=== PATIENT | female | born 1980 | race Caucasian/White ===

== ENCOUNTER 2017-08-28 16:05 | Observation (INO) ==
[2017-08-28 16:30] LABS: Basophils % 0.1 %; Eosinophils % 0.3 %; Hematocrit 35.2 % (35.3-44.9); Hemoglobin 11.8 g/dL (11.5-15.4); Immature Granulocytes % 0.4 % (0-4); Lymphocytes # 2.5 K/mcL (0.6-4.6); Lymphocytes % 20.1 %; Mean Corpuscular HGB Conc 33.5 g/dL (31.6-35.5); Mean Corpuscular Hemoglobin 29.7 pg (28.0-33.3); Mean Corpuscular Volume 88.7 fL (83.0-100.0); Mean Platelet Volume 11.2 fL (9.4-12.4); Monocytes # 0.6 K/mcL (0.0-1.3); Monocytes % 5.3 %; Platelet Count 133 K/mcL (140-400); Red Blood Count 3.97 M/mcL (3.82-4.97); Red Cell Distribution Width 13.2 % (11.5-14.5); Segmented Neutrophils % 73.8 %
[2017-08-28 16:34] LABS: Bilirubin,Urine Negative (Negative); Blood,Urine Moderate (Negative); Clarity,Urine Cloudy (Clear); Color,Urine Yellow (Yellow); Glucose,Urine (UA) Normal (Normal); Ketones,Urine Negative (Negative); Leukocyte Esterase,Urine Large (Negative); Nitrite,Urine Negative (Negative); Protein,Urine Negative (Neg-Trace); Specific Gravity,Urine 1.015 (1.010-1.025); Urobilinogen,Urine Normal (Normal)
[2017-08-28 16:35] LABS: Bacteria,Urine Few per hpf (None-Few); Hyaline Casts,Urine None Seen per lpf (None-Few); RBC,Urine 0-3 per hpf (0-3); Squamous Epithelial Cell,Urine Many per lpf (None-Few); WBC,Urine 30-50 per hpf (0-3)
[2017-08-28 16:46] LABS: Amphetamine Screen,Urine Negative ng/mL (Cutoff=1000); Barbiturate Screen,Urine Negative ng/mL (Cutoff=200); Benzodiazepines Screen,Urine Negative ng/mL (Cutoff=200); Cannabinoid Screen,Urine Negative ng/mL (Cutoff = 50); Cocaine Screen,Urine Negative ng/mL (Cutoff= 300); Opiate Screen,Urine Negative ng/mL (Cutoff=300); Phencyclidine Screen,Urine Negative ng/mL (Cutoff=25)
[2017-08-28 17:09] LABS: Alanine Aminotransferase 12 Units/L (7-52); Aspartate Amino Transferase 15 Units/L (13-39); BUN/Creatinine Ratio 13 (6-26); Blood Urea Nitrogen 11 mg/dL (6-20); Lactate Dehydrogenase 114 Units/L (140-271); Protein/Creatinine Ratio,Urine 0.16 mg/mg (0.00-0.20); Uric Acid 4.7 mg/dL (2.3-7.6); eGFR For African Americans > 60 (> 60); eGFR For Non-African Americans > 60 (> 60)
--- NOTE | 2017-08-28 17:36 | OB/GYN Progress Note ---
Date of Encounter: 08/28/17 Time of Encounter: 17:47 - Assessment and Plan (1) Decreased movement Current Visit: Yes Status: Acute Plan: - NST reactive, category 1 - [place] irregular contractions - PIH labs drawn and negative, blood pressure returned to wnl - Patient safe to discharge home with instructions to return if concerns for decrease kick count Qualifiers: Fetus number: single or unspecified fetus Trimester: third trimester Qualified Code(s): O36.8130 - Decreased movements, third trimester, not applicable or unspecified (2) 36 weeks gestation of Current Visit: Yes Status: Acute (3) NST (non-stress test) reactive Current Visit: Yes Status: Acute (4) Elevated blood pressure affecting in third trimester, antepartum Current Visit: Yes Status: Acute PIH labs drawn and negative for pre-eclampsia, no s/sx (5) Uterine contractions Current Visit: Yes Status: Acute Pt reporting increasing contractions. Plan to repeat SVE and will discharge if no change. Subjective - Subjective Principal diagnosis: decrease movement Interval history: Patient is a at 36+4 week that presented to L&D with decrease movement. Patient states that the last time she felt baby move was today as she was in in the L&D room. Patient has been able to feel baby move but activities that she does that normally makes baby more active has not since yesterday. Patient does have a hx of having to be induced for oligohydramnios at 36 weeks. Patient denies fevers, chills, N/V, MCINTYRE, changes in vision, leakage of fluid, vaginal bleeding. She does report contractions are becoming more frequent and stronger. She also reports pelvic pressure. Total pregnancies 3. Total living children 2. # 1: 5[birth year]23[birth year] induced at 36weeks for oligohydramnios normal spontaneous vaginal delivery (),female 5lbs 3oz "Babs" born at [facility].. # 2: 08/29/15, FEMALE, 6#, FULL TERM, VAGINAL, "NEO". Antepartum ROS: no loss of fluid, no vaginal bleeding, no movement normal , no contractions Objective - Vital Signs Vital Signs: BP: 161/90, 140/78, 136/76, 122/71 Intake and Output 08/28/17 08/28/17 08/28/17 07:59 15:59 23:59 Other: Weight 74.7 kg Patient Weight 08/28/17 23:59 Weight 74.7 kg - Exam FHR: category 1 Auscultation: bilateral: normal Abdomen: Present: soft Uterus: Present: normal - Labs Labs: Abnormal lab results WBC 12.2 K/mcL (4.3-11.1) H 08/28/17 16:16 Hct 35.2 % (35.3-44.9) L 08/28/17 16:16 Plt Count 133 K/mcL (140-400) L 08/28/17 16:16 Neutrophils # 9.0 K/mcL (1.6-8.9) H 08/28/17 16:16 Lactate Dehydrogenase 114 Units/L (140-271) L 08/28/17 16:16 Urine Clarity Cloudy (Clear) A 08/28/17 16:16 Urine Blood Moderate (Negative) H 08/28/17 16:16 Ur Leukocyte Esterase Large (Negative) H 08/28/17 16:16 Urine Microscopic WBC 30-50 per hpf (0-3) H 08/28/17 16:16 Ur Squamous Epith Cells Many per lpf (None-Few) H 08/28/17 16:16
== END 2017-08-28 18:52 | disposition home or self-care (01) ==
LOC: 1NENULAB
PROVIDERS: ADMIT Obstetrics & Gynecology; ATTEND Obstetrics & Gynecology

== ENCOUNTER 2017-09-04 11:58 | Inpatient (IN) ==
[2017-09-04] MEDS ORDERED: Famotidine 20 MG/2 ML VIAL IVP PRN (12:35)
[2017-09-04] MEDS ORDERED: Naloxone 0.4 MG/ML INJ IVP PRN (12:35)
[2017-09-04] MEDS ORDERED: Metoclopramide 10 MG/2 ML VIAL IVP PRN (12:35)
[2017-09-04] MEDS ORDERED: miSOPROStol 25 MCG TABLET VG PRN (13:30)
[2017-09-04 13:33] LABS: Basophils % 0.1 %; Eosinophils % 0.4 %; Hematocrit 35.2 % (35.3-44.9); Hemoglobin 11.7 g/dL (11.5-15.4); Immature Granulocytes % 0.4 % (0-4); Lymphocytes # 2.2 K/mcL (0.6-4.6); Lymphocytes % 20.2 %; Mean Corpuscular HGB Conc 33.2 g/dL (31.6-35.5); Mean Corpuscular Hemoglobin 29.5 pg (28.0-33.3); Mean Corpuscular Volume 88.7 fL (83.0-100.0); Mean Platelet Volume 11.4 fL (9.4-12.4); Monocytes # 0.6 K/mcL (0.0-1.3); Neutrophils # 7.8 K/mcL (1.6-8.9); Platelet Count 124 K/mcL (140-400); Red Blood Count 3.97 M/mcL (3.82-4.97); Red Cell Distribution Width 13.1 % (11.5-14.5); Segmented Neutrophils % 72.9 %
--- NOTE | 2017-09-04 13:33 | OB/GYN History & Physical ---
Date of Encounter: 09/04/17 Time of Encounter: 13:30 Assessment and Plan (1) and not yet delivered in third trimester Current visit: Yes Status: Acute (2) 37 weeks gestation of Current visit: Yes Status: Acute (3) Advanced maternal age during in third trimester Current visit: Yes Status: Acute (4) Gestational hypertension Current visit: Yes Status: Acute Patient will be induced with a Wong catheter and Cytotec PIH labs have been ordered plan is to anticipate vaginal delivery Qualifiers: Trimester: third trimester Qualified Code(s): O13.3 - Gestational [ -induced] hypertension without significant proteinuria, third trimester History of Present Illness HPI: Ms. Baum is a 37 year old female 3 para 1011 at 37-4/7 weeks by last menstrual period equal to 9-1/7 week ultrasound who was sent in from the office for induction of labor secondary to gestational hypertension. Patient's blood pressure has been elevated over the last few visits that yesterday she called stating she was beginning of headaches and blood pressures are running consistently high at home and at work and she works as a nurse. The patient come to the office this morning blood pressure was 160/109. She states she has been having some headaches and blurred vision. Patient has had PIH labs which have been normal. Because she is over 37 weeks advanced maternal age and her blood pressures are consistently elevated this to set this time go ahead and send her to labor and delivery for an induction. Patient states she is feeling the baby move but is been decreased recently no leaking of fluid contractions. She is Rh+ rubella positive and GBS negative. Past Med Surg Social Fam HX - Past Medical History Source: patient, old records reviewed Medical history: hypertension, kidney stones Psychiatric history: no psych history - Past Surgical History Surgical History: appendectomy, orthopedic, other, other (Kidney stone removal, tonsillectomy) - Social History Smoking Status: Never smoker Smokeless Tobacco Status: No Alcohol use: none Drug use: none Occupational status: employed Current living situation: Home - Independent Activity Level: Independent ambulation Recent Out of Country Travel Within the Last 8 Weeks: No Exposure or Possible Exposure to Illness During Travel: No - Family History Father Adopted: No Living Status: Still Living Hx Family Cardiac Disorders: Yes (htn) Hx Family Respiratory Disorders: No Hx Family Cancer: No Hx Family GI Disorders: No Hx Family Genitourinary Disorders: No Hx Family Endocrine Disorder: No Hx Family Musculoskeletal Disorders: No Hx Family Neuromuscular Disorders: No Hx Family Neurologic Disorders: No Hx Family HEENT Disorders: No Hx Family Autoimmune Disorders: No Hx Family Reproductive Disorders: No Hx Family Psychosocial Disorders: No Hx Family Medical Disorders: No Obstetrical History - Pregnancies : 3 Para: 1 Term: 1 : 0 Ab's: 1 Medications and Allergies Vit/FA 1 tab PO DAILY 05/25/15 [History] Aspirin [Lo-Dose Aspirin EC] 81 mg pe PO DAILY 08/28/17 [History] 3 Allergy/AdvReac Type Severity Reaction Status Date / Time No Known Allergies Allergy Verified 09/04/17 12:55 Review of System OB All systems PM: reviewed and no additional remarkable complaints except as stated Exam - Constitutional Constitutional: well developed, well nourished, no acute distress, average body habitus, obese - HEENT HEENT: PERRL - Neck Neck exam: full ROM - Lungs Respiratory exam: CTAB - Cardiovascular Cardiovascular exam: RRR - Abdomen Abdomen: Present: gravid - Extremities Extremities exam: pedal edema Deep Tendon Reflex Grade: 2+ Normal - Cervix Dilation: 1 Effacement: 80 Station: -2 - Uterus Uterus exam: Present: enlarged - Comments Comments: heart tones 140s reactive no contraction seen Results All other labs normal. - VTE Reasons for not Prescribing Prophylaxis: Treatment not Indicated - Low risk for VTE
[2017-09-04 13:43] LABS: Protein/Creatinine Ratio,Urine 0.12 mg/mg (0.00-0.20)
[2017-09-04] MEDS: Ringers Solution, Lactated 1,000 ML IVC SCH ×2 (13:50→17:48)
[2017-09-04 13:52] LABS: Alanine Aminotransferase 14 Units/L (7-52); Aspartate Amino Transferase 18 Units/L (13-39); BUN/Creatinine Ratio 13 (6-26); Blood Urea Nitrogen 11 mg/dL (6-20); Lactate Dehydrogenase 123 Units/L (140-271); eGFR For African Americans > 60 (> 60); eGFR For Non-African Americans > 60 (> 60)
[2017-09-04 13:55] LABS: Amphetamine Screen,Urine Negative ng/mL (Cutoff=1000); Barbiturate Screen,Urine Negative ng/mL (Cutoff=200); Benzodiazepines Screen,Urine Negative ng/mL (Cutoff=200); Cannabinoid Screen,Urine Negative ng/mL (Cutoff = 50); Cocaine Screen,Urine Negative ng/mL (Cutoff= 300); Opiate Screen,Urine Negative ng/mL (Cutoff=300); Phencyclidine Screen,Urine Negative ng/mL (Cutoff=25)
[2017-09-04] MEDS ORDERED: *HR* Nalbuphine 20 MG/ML AMPUL IVP PRN (17:30)
--- NOTE | 2017-09-04 18:00 | Anesthesia Evaluation PreOp ---
Date of Encounter: 09/04/17 Time of Encounter: 17:58 - Past History Planned Operation: za Cardiac History: HTN (PIH) Pulmonary History: Denies Any Significant HX WELLNESS ASSISTANT History: Denies Any Significant HX Other Medical History: GERD Anesthesia History: No Prior Anesthetic Complications, Past Anesthesia (za x 2 , tonsil) : Yes Test: Negative Alcohol Use: none Drug use: none Medications and Allergies Vit/FA 1 tab PO DAILY 05/25/15 [History] Aspirin [Lo-Dose Aspirin EC] 81 mg pe PO DAILY 08/28/17 [History] 3 Allergy/AdvReac Type Severity Reaction Status Date / Time No Known Allergies Allergy Verified 09/04/17 12:55 - Meds/Allergy Pre-op Review Medications Reviewed: Yes Allergies Reviewed: Yes Beta Blockers on Current Med List: No Anesthesia Results - Labs 09/04/17 13:20 09/04/17 13:20 Anesthesia Exam 136/86 76 16 fht 133 Height: 5'6" Weight: 74 NPO (# of Hours): 5 Pain Scale: 5 Pain Scale Used: Numeric (1 - 10) - HEENT Pupil (Motor): Pupils equal Mallampati: II Teeth: Normal Oral Opening: Greater than 3 - WELLNESS ASSISTANT LOC: Oriented WELLNESS ASSISTANT Motor: Normal RUE, Normal LUE, Normal RLE, Normal LLE, Normal Face WELLNESS ASSISTANT Sensory: Normal: RUE, LUE, RLE, LLE, Face - Cardiac Rhythm: Regular Murmur: None - Pulmonary Breath Sounds: bilateral Clear Respiratory Effort: Symmetrical Anesthesia Assess/Plan ASA Score: 2 Modified Tatianna Scale for Level of Consciousness: Cooperative, oriented, and tranquil Anesthetic Plan: Regional (risks discussed, questions answered, conseented) Autologous Blood: No Monitoring Plan: Standard Monitors Recovery Plan: Other
[2017-09-04] MEDS ORDERED: *HR* FentaNYL (PF) 100 MCG/2 ML VIAL EP ONE (18:01)
[2017-09-04] MEDS ORDERED: *HR* FentaNYL (PF) 100 MCG/2 ML VIAL ONE (18:03)
[2017-09-04] MEDS ORDERED: Epidural Premix (fent/bupiv) 110 ML EP ONE (18:04)
[2017-09-04] MEDS ORDERED: Epidural Premix (fent/bupiv) 110 ML EP SCH (18:15)
--- NOTE | 2017-09-04 18:29 | Anesthesia Procedures ---
Date of Encounter: 09/04/17 Time of Encounter: 18:26 Procedures: Anesthesia - Epidural/Spinal Patient ID/Chart reviewed: Yes Patient examined: Yes OB Eval: Gestational age: 37.4 OB Eval: : 3 OB Eval: Hx Para: 2 OB Eval: Dilated at (cm): 5 OB Eval: Contractions: Non-stressed pattern Consent Obtained: Yes Supplemental Oxygen: None/Room Air Site Prep: Aseptic Technique, Sterile prep and drape, 0.5% Chlorhexidine/Alcohol Patient position: upright Local Anesthetic: Lidocaine 1% Amount of Local Anesthetic used: 3 Touhy Needle Gauge: 18 Touhy Needle Depth (cm): 5 Catheter Depth at Skin (cm): 15 Test Dose (1.5% Lido + Epi): Volume given (mls): 3 Test Dose Result: Negative Loading Dose: Fentanyl (mcg): 100 Loading Dose Administered: Thru Touhy Needle Infusion Med: 0.125% Bupivacaine w/ 2 mcg/ml Fentanyl Infusion Rate (mls/hr): [address]: Tegaderm Interspace Used: L2-L3 Loss of Resistance (KUSHAL): Yes Blood: No CSF: No Paresthesia: No Procedure: aseptic, tolerated well, VSS, effective Vitals + FHT's: 130/80 84 fht 144
--- NOTE | 2017-09-04 18:47 | OB Labor Progress Note ---
Date of Encounter: 09/04/17 Time of Encounter: 18:50 Labor Progress Note - Vital Signs Vital Signs: Patient is more comfortable now she has an epidural not feeling any of the contractions. - Cervix Cervix: 5/80/0 AROM clear fluid - Heart Tones Heart Tones: heart tones 140s reactive - Farber Farber: Contractions every 2 minutes - Plan Plan: Continue current care and anticipate vaginal delivery
[2017-09-04] MEDS ORDERED: Oxytocin 20 units/ LR 1000 mL 20 UNIT/1,000 ML BAG IVC SCH (20:45)
--- NOTE | 2017-09-04 23:58 | OB/GYN Procedure Note ---
Delivery - Delivery Date: 09/04/17 Provider: Mainor Kimbrough Intrapartum events: none Delivery induction: brady, misoprostol Delivery augmentation: rupture of membranes, pitocin Delivery monitor: external FHT, external uterine Anesthesia: epidural Estimated Blood Loss: 100 - (s) A Infant Delivery Date: 09/04/17 Infant Delivery Time: 23:17 Presentation: vertex Position: ELE Route of delivery: Gender: Female Viability: Viable Pounds: 6 Ounces: 3 Weight Gram: 2.8 kg at 1 minute: 9 at 5 mins: 9 Shoulder Dystocia: not encountered Specimens collected: cord blood Placenta: spontaneous Cord: 3 umbilical vessels - Repair Episiotomy: none Laceration Description: Perineal - 1st Degree - Complications Delivery complications: none Delivery comments: Vision is a 37-year-old 3 para 1102 at 37-4/7 weeks she had presented from the office for induction of labor secondary to gestational hypertension. Patient's blood pressures have started to elevate approximately 4 weeks ago and was throwing a week it was moderately elevated done pH labs on the patient which have been normal patient was doing her blood pressures at home and at work and they had remained elevated we had to come to the office today the blood pressures 160/109 she was not feeling well was having some headaches and little bit of blurred vision and it was recommended go ahead and get her delivered due to the hypertension. She was brought to labor and delivery where Brady catheter and Cytotec was placed catheter fell out approximately 2-3 hours later and patient was 4-5 cm. She received an epidural she was artificially ruptured with clear fluid. Patient did require a little bit of augmentation with Pitocin and became complete and pushing couple times delivering a viable female in right occiput anterior presentation at 2317. There was no nuchal cord, no meconium, the infant was bulb suctioned on the abdomen. Apgars were 9 at 1 minute, 9 at 5 minutes, weight was 6 lbs. 3 oz. Placenta was then delivered spontaneously with three-vessel cord, scale agent at [place] , anesthesia epidural, estimated blood loss 100 mL. Patient had a small superficial perineal laceration was repaired with 4-0 Vicryl in usual fashion. Cervix and vagina was visualized intact. Patient tolerated the delivery well she will be observed 2 hours before being take to the floor. Patient is wanting a tubal ligation she will be made nothing by mouth after midnight tomorrow night for tubal ligation the next morning. - Disposition Mom disposition: stable in LDR disposition: stable in LDR
[2017-09-05] MEDS ORDERED: Lanolin 28 GM TUBE TP PRN (01:18)
[2017-09-05] MEDS ORDERED: Oxytocin 20 units/ LR 1000 mL 20 UNIT/1,000 ML BAG IVC SCH (01:18)
[2017-09-05] MEDS ORDERED: Benzocaine/Menthol 56 GM AEROSOL SPRAY TP PRN (01:18)
[2017-09-05] MEDS ORDERED: Acetaminophen 325 MG TABLET PO PRN (01:18)
[2017-09-05 07:24] LABS: Basophils % 0.1 %; Eosinophils # 0.1 K/mcL (0.0-0.6); Eosinophils % 0.7 %; Hematocrit 35.1 % (35.3-44.9); Hemoglobin 11.6 g/dL (11.5-15.4); Immature Granulocytes % 0.4 % (0-4); Lymphocytes # 2.1 K/mcL (0.6-4.6); Lymphocytes % 15.7 %; Mean Corpuscular Hemoglobin 29.4 pg (28.0-33.3); Mean Corpuscular Volume 88.9 fL (83.0-100.0); Mean Platelet Volume 11.1 fL (9.4-12.4); Monocytes # 0.8 K/mcL (0.0-1.3); Monocytes % 6.1 %; Neutrophils # 10.4 K/mcL (1.6-8.9); Platelet Count 116 K/mcL (140-400); Red Blood Count 3.95 M/mcL (3.82-4.97); Red Cell Distribution Width 13.1 % (11.5-14.5)
[2017-09-05] MEDS ORDERED: Prenatal Vit/FA 1 EACH TABLET PO SCH ×2 (09:00)
[2017-09-05] MEDS: Ibuprofen 600 MG TABLET PO PRN ×2 (09:43→20:25)
--- NOTE | 2017-09-05 10:11 | OB/GYN Progress Note ---
Date of Encounter: 09/05/17 Time of Encounter: 10:09 - Assessment and Plan (1) Normal spontaneous vaginal delivery Current Visit: Yes Status: Acute Plan: - blood pressures within normal limits, continue to monitor vitals - Pain is well controlled - NPO at midnight, BPS planned for tomorrow - continue to encourage breast feeding - anticipate discharge tomorrow (2) 37 weeks gestation of Current Visit: Yes Status: Acute (3) Advanced maternal age during in third trimester Current Visit: Yes Status: Acute (4) Gestational hypertension Current Visit: Yes Status: Acute Qualifiers: Trimester: third trimester Qualified Code(s): O13.3 - Gestational [ -induced] hypertension without significant proteinuria, third trimester Subjective - Subjective Principal diagnosis: induction of labor Interval history: Patient is doing well without pain. Patient has not taken any medication for pain today. Lochia is wnl. + voiding. Patient's blood pressures have been wnl. Patient reports: appetite normal, voiding normally, pain well controlled, ambulating normally : doing well Objective - Latest Vital Signs Latest vital signs: Vital Signs Temp Pulse Resp BP Pulse Ox 09/05/17 08:25 98.5 F 76 20 117/78 97 09/05/17 04:15 98.3 F 80 16 115/72 96 09/05/17 03:08 98.5 F 86 16 123/83 97 09/05/17 02:00 98.4 F 82 16 147/82 98 Intake and Output 09/04/17 09/05/17 09/05/17 23:59 07:59 15:59 Intake Total 1000 / 1000 360 / 360 Output Total 500 / 500 550 / 550 Balance 1000 / 1000 -500 / -500 -190 / -190 Intake: IV Fluids 1000 / 1000 Lactated Ringers 1,000 ML @ 125 1000 / 1000 mls/hr IVC .Q8H [facility] Rx#: [id number] Oral 360 / 360 Output: Urine 500 / 500 550 / 550 Other: Meal Breakfast Percent of Meal Consumed 100% Weight 73 kg Patient Weight 09/05/17 23:59 Weight 73 kg - Exam Lungs: bilateral: normal Chest: Normal S1, Normal S2 Extremities: Present: normal Abdomen: Present: normal appearance, soft Uterus: Present: firm Uterus Position: 2 Fingers Below Umbilicus - Labs Labs: Laboratory Results - last 24 hr 01/09/04/17 09/04/17 13:20 13:20 13:20 WBC 10.6 RBC 3.97 Hgb 11.7 Hct 35.2 L MCV 88.7 MCH 29.5 MCHC 33.2 RDW 13.1 Plt Count 124 L MPV 11.4 Immature Gran % 0.4 Seg Neutrophils % 72.9 Lymphocytes % 20.2 Monocytes % 6.0 Eosinophils % 0.4 Basophils % 0.1 Neutrophils # 7.8 Lymphocytes # 2.2 Monocytes # 0.6 Eosinophils # 0.0 Basophils # 0.0 BUN 11 Creatinine 0.82 Est GFR ( Amer) > 60 Est GFR (Non-Af Amer) > 60 BUN/Creatinine Ratio 13 Uric Acid 5.0 AST 18 ALT 14 Lactate Dehydrogenase 123 L Urine Creatinine Protein/Creatinin Ratio Urine Total Protein Urine Opiates Screen Negative Ur Barbiturates Screen Negative Ur Phencyclidine Scrn Negative Ur Amphetamines Screen Negative U Benzodiazepines Scrn Negative Urine Cocaine Screen Negative U Marijuana (THC) Screen Negative 09/04/17 09/05/17 13:20 07:07 WBC 13.5 H RBC 3.95 Hgb 11.6 Hct 35.1 L MCV 88.9 MCH 29.4 MCHC 33.0 RDW 13.1 Plt Count 116 L MPV 11.1 Immature Gran % 0.4 Seg Neutrophils % 77.0 Lymphocytes % 15.7 Monocytes % 6.1 Eosinophils % 0.7 Basophils % 0.1 Neutrophils # 10.4 H Lymphocytes # 2.1 Monocytes # 0.8 Eosinophils # 0.1 Basophils # 0.0 BUN Creatinine Est GFR ( Amer) Est GFR (Non-Af Amer) BUN/Creatinine Ratio Uric Acid AST ALT Lactate Dehydrogenase Urine Creatinine 92 Protein/Creatinin Ratio 0.12 Urine Total Protein 11 Urine Opiates Screen Ur Barbiturates Screen Ur Phencyclidine Scrn Ur Amphetamines Screen U Benzodiazepines Scrn Urine Cocaine Screen U Marijuana (THC) Screen
--- NOTE | 2017-09-06 07:27 | OB/GYN Progress Note ---
Date of Encounter: 09/06/17 Time of Encounter: 07:35 - Assessment and Plan (1) and not yet delivered in third trimester Current Visit: Yes Status: Acute (2) 37 weeks gestation of Current Visit: Yes Status: Acute (3) Advanced maternal age during in third trimester Current Visit: Yes Status: Acute (4) Gestational hypertension Current Visit: Yes Status: Acute Patient will be induced with a Wong catheter and Cytotec PIH labs have been ordered plan is to anticipate vaginal delivery Qualifiers: Trimester: third trimester Qualified Code(s): O13.3 - Gestational [ -induced] hypertension without significant proteinuria, third trimester (5) Family planning Current Visit: Yes Status: Acute patient will be scheduled for BPS this am Subjective - Subjective Interval history: patient doing well still wanting tubal a tubal ligation Patient reports: pain well controlled : doing well Objective - Latest Vital Signs Latest vital signs: Vital Signs Temp Pulse Resp BP Pulse Ox 09/06/17 06:12 97.7 F 59 16 138/85 98 09/06/17 00:45 125/76 09/05/17 20:02 98.1 F 84 16 136/87 97 09/05/17 16:20 16 09/05/17 15:56 97.9 F 87 20 141/83 97 09/05/17 10:00 16 09/05/17 08:25 98.5 F 76 20 117/78 97 Intake and Output 09/05/17 09/05/17 09/06/17 15:59 23:59 07:59 Intake Total 1100 / 1100 640 / 640 Output Total 1450 / 1450 1350 / 1350 400 / 400 Balance -350 / -350 -710 / -710 -400 / -400 Intake: Oral 600 / 600 640 / 640 Free Water 500 / 500 Output: Urine 1450 / 1450 1350 / 1350 400 / 400 Other: Meal Lunch Dinner Percent of Meal Consumed 100% 100% Weight 71.804 kg Patient Weight 09/06/17 23:59 Weight 71.804 kg - Exam Lungs: bilateral: normal Chest: Normal S1, Normal S2 Extremities: Present: normal Abdomen: Present: normal appearance Uterus: Present: firm Uterus Position: 1 Finger Below Umbilicus - Labs Labs: Laboratory Results - last 24 hr 09/05/17 07:07 WBC 13.5 H RBC 3.95 Hgb 11.6 Hct 35.1 L MCV 88.9 MCH 29.4 MCHC 33.0 RDW 13.1 Plt Count 116 L MPV 11.1 Immature Gran % 0.4 Seg Neutrophils % 77.0 Lymphocytes % 15.7 Monocytes % 6.1 Eosinophils % 0.7 Basophils % 0.1 Neutrophils # 10.4 H Lymphocytes # 2.1 Monocytes # 0.8 Eosinophils # 0.1 Basophils # 0.0
--- NOTE | 2017-09-06 07:40 | Anesthesia Evaluation PreOp ---
Date of Encounter: 09/06/17 Time of Encounter: 07:38 - Past History Planned Operation: BPS Cardiac History: HTN (PIH) Pulmonary History: Denies Any Significant HX PROPOSAL ENGINEER History: Denies Any Significant HX Other Medical History: Renal (kidney stones) Anesthesia History: No Prior Anesthetic Complications, Past Anesthesia Alcohol Use: none Drug use: none Medications and Allergies Vit/FA 1 tab PO DAILY 05/25/15 [History] Aspirin [Lo-Dose Aspirin EC] 81 mg pe PO DAILY 08/28/17 [History] 3 Allergy/AdvReac Type Severity Reaction Status Date / Time No Known Allergies Allergy Verified 09/04/17 12:55 - Meds/Allergy Pre-op Review Medications Reviewed: Yes Allergies Reviewed: Yes Beta Blockers on Current Med List: No Anesthesia Results - Labs 09/05/17 07:07 09/04/17 13:20 Anesthesia Exam Vital Signs/O2 Sat, Most Current Temp Pulse Resp BP Pulse Ox 97.7 F 59 16 138/85 98 09/06/17 06:12 09/06/17 06:12 09/06/17 06:12 09/06/17 06:12 09/06/17 06:12 Height: 5'6''/1.68 m Weight: 158 lbs/71.8 kg NPO (# of Hours): 8 Pain Scale: 0 Pain Scale Used: Numeric (1 - 10) - HEENT Pupil (Motor): EOMI Mallampati: II Teeth: Normal Oral Opening: Greater than 3 - PROPOSAL ENGINEER LOC: Oriented PROPOSAL ENGINEER Motor: Normal RUE, Normal LUE, Normal RLE, Normal LLE, Normal Face PROPOSAL ENGINEER Sensory: Normal: RUE, LUE, RLE, LLE, Face - Cardiac Rhythm: Regular Murmur: None - Pulmonary Breath Sounds: bilateral Clear Respiratory Effort: Symmetrical Anesthesia Assess/Plan ASA Score: 2 Modified Tatianna Scale for Level of Consciousness: Cooperative, oriented, and tranquil Anesthetic Plan: General Monitoring Plan: Standard Monitors Recovery Plan: PACU
[2017-09-06] MEDS ORDERED: *HR* FentaNYL (PF) 100 MCG/2 ML VIAL ONE (07:47)
[2017-09-06] MEDS ORDERED: *HR* Succinylcholine 200 MG/10 ML VIAL IVP ONE (07:48)
[2017-09-06] MEDS ORDERED: *HR* Propofol 200 MG/20 ML VIAL IVP ONE (07:48)
[2017-09-06] MEDS ORDERED: Ondansetron 4 MG/2 ML VIAL ONE (07:48)
[2017-09-06] MEDS ORDERED: Lidocaine -MPF 2% 2 ML VIAL ONE (07:48)
[2017-09-06] MEDS ORDERED: Dexamethasone 4 MG/ML VIAL ONE (07:48)
[2017-09-06] MEDS ORDERED: *HR* Midazolam HCl 2 MG/2 ML VIAL ONE (07:48)
[2017-09-06] MEDS ORDERED: *HR* Rocuronium Bromide 50 MG/5 ML VIAL ONE (07:48)
[2017-09-06] MEDS ORDERED: Bupivacaine-MPF 0.25% 10 ML VIAL ONE (08:10)
--- NOTE | 2017-09-06 08:55 | Operative Note ---
Date of procedure: 09/06/17 Pre-op diagnosis: Status post vaginal delivery, desires sterilization Post-op diagnosis: same Procedure: Bilateral partial salpingectomy Complications: none Surgeon: Mainor Kimbrough Was there an financial legal assistant present: No Estimated blood loss (cc): 20 Specimen: Portion of the right and left fallopian tube Condition: stable Disposition: PACU Procedure in Detail: Patient is a 37-year-old 3 para 1102 status post vaginal delivery who desired bilateral partial salpingectomy. Patient states has 3 children and desires no more the risks and benefits of the tubal was extended to patient with a failure rate of 3-5 per thousand with increased risk of ectopic if was to occur. Procedure: Patient was taken Removing the general anesthesia was found be adequate. She was placed in the dorsal supine position prepped and draped in usual fashion. Timeout was then obtained. A small infraumbilical incision was made with a scalpel and carried down to the underlying tissue to the fascia was identified. Fascia was nicked in midline and extended laterally with Bourne scissors. Parietal peritoneum was identified tented up and entered sharply. [employer] retractors placed in the incision the right fallopian tube was identified grasped and brought out through the incision. The tube was followed to the fimbriated end and then at the ampullary region a 2 cm portion of tube was suture ligated with 0 chromic 2 before the knuckle was excised. Good hemostasis was noted the ovary was normal the tube was returned to the abdomen and attention was turned to the opposite side. This tube was then grasped through the incision followed out to the fimbriated end. Again at the ampullary region 2 cm portion of tube was suture ligated 2 before this knuckle was excised. Good hemostasis was noted there was a small cyst on the left ovary. This tube was returned to the abdomen and the fascia was closed using a 0 Vicryl in a running stitch the skin was closed using 4-0 Vicryl in subcuticular manner. All needles laps and sponge counts were correct 3 and she did receive preoperative antibiotics. Patient was taken to recovery room in stable was taken back to the floor.
[2017-09-06] MEDS: *HR* Morphine 2 MG/ML SYRINGE IVP PRN ×4 (08:59→09:19)
--- NOTE | 2017-09-06 09:29 | Anesthesia Evaluation Post Op ---
Date of Encounter: 09/06/17 Time of Encounter: 09:29 - Vital Signs Vital Signs: Vital Signs/O2 Sat, Most Current Temp Pulse Resp BP Pulse Ox 97.6 F 105 16 130/83 96 09/06/17 09:23 09/06/17 09:23 09/06/17 09:23 09/06/17 09:23 09/06/17 09:23 - Lungs Lungs: Clear Ascult./Percussion - Airway Airway: Non-obstructed - Cardiovascular Regular Rate - Mental Status Mental Status: Asleep with brisk response to light stimulation - Pain Pain Scale: 5 Pain Scale used: Numeric (1 - 10) - Nausea Vomiting Nausea Vomiting: Not Present - Hydration Hydration: Ice chips, Has not voided - Discharge PostOp Status: Transfer Patient to floor
[2017-09-06] MEDS ORDERED: *HR* HYDROcodone/Acet 5/325 mg TABLET PO PRN (09:30)
--- NOTE | 2017-09-06 10:52 | Discharge Summary ---
Date of Encounter: 09/06/17 Time of Encounter: 10:50 - Discharge Diagnosis (1) and not yet delivered in third trimester Priority: Secondary Status: Acute (2) 37 weeks gestation of Priority: Secondary Status: Acute (3) Advanced maternal age during in third trimester Priority: Secondary Status: Acute (4) Gestational hypertension Priority: Secondary Status: Acute Qualifiers: Trimester: third trimester Qualified Code(s): O13.3 - Gestational [ -induced] hypertension without significant proteinuria, third trimester (5) Family planning Priority: Secondary Status: Acute (6) Normal spontaneous vaginal delivery Priority: Primary Status: Acute - Discharge Medications Prescriptions: Ibuprofen [Motrin] 600 mg PO Q6HR PRN #30 tablet PRN Reason: Cramping HYDROcodone/Acet 5/325 mg [[place] 5-325 mg] 1 tab PO Q6H PRN #28 tablet PRN Reason: Moderate Pain Home Medications: Vit/FA 1 tab PO DAILY 05/25/15 [History] Aspirin [Lo-Dose Aspirin EC] 81 mg pe PO DAILY 08/28/17 [History] HYDROcodone/Acet 5/325 mg [[place] 5-325 mg] 1 tab PO Q6H PRN #28 tablet 09/06/17 [Rx] Ibuprofen [Motrin] 600 mg PO Q6HR PRN #30 tablet 09/06/17 [Rx] Allergies/Adverse Reactions: 3 Allergy/AdvReac Type Severity Reaction Status Date / Time No Known Allergies Allergy Verified 09/04/17 12:55 Data Procedures and tests throughout hospitalization: Laboratory Tests 09/04/17 09/04/17 09/04/17 13:20 13:20 13:20 WBC 10.6 RBC 3.97 Hgb 11.7 Hct 35.2 L MCV 88.7 MCH 29.5 MCHC 33.2 RDW 13.1 Plt Count 124 L MPV 11.4 Immature Gran % 0.4 Seg Neutrophils % 72.9 Lymphocytes % 20.2 Monocytes % 6.0 Eosinophils % 0.4 Basophils % 0.1 Neutrophils # 7.8 Lymphocytes # 2.2 Monocytes # 0.6 Eosinophils # 0.0 Basophils # 0.0 BUN 11 Creatinine 0.82 Est GFR ( Amer) > 60 Est GFR (Non-Af Amer) > 60 BUN/Creatinine Ratio 13 Uric Acid 5.0 AST 18 ALT 14 Lactate Dehydrogenase 123 L Urine Creatinine Protein/Creatinin Ratio Urine Total Protein Urine Opiates Screen Negative Ur Barbiturates Screen Negative Ur Phencyclidine Scrn Negative Ur Amphetamines Screen Negative U Benzodiazepines Scrn Negative Urine Cocaine Screen Negative U Marijuana (THC) Screen Negative 09/04/17 09/05/17 13:20 07:07 WBC 13.5 H RBC 3.95 Hgb 11.6 Hct 35.1 L MCV 88.9 MCH 29.4 MCHC 33.0 RDW 13.1 Plt Count 116 L MPV 11.1 Immature Gran % 0.4 Seg Neutrophils % 77.0 Lymphocytes % 15.7 Monocytes % 6.1 Eosinophils % 0.7 Basophils % 0.1 Neutrophils # 10.4 H Lymphocytes # 2.1 Monocytes # 0.8 Eosinophils # 0.1 Basophils # 0.0 BUN Creatinine Est GFR ( Amer) Est GFR (Non-Af Amer) BUN/Creatinine Ratio Uric Acid AST ALT Lactate Dehydrogenase Urine Creatinine 92 Protein/Creatinin Ratio 0.12 Urine Total Protein 11 Urine Opiates Screen Ur Barbiturates Screen Ur Phencyclidine Scrn Ur Amphetamines Screen U Benzodiazepines Scrn Urine Cocaine Screen U Marijuana (THC) Screen Date of admission: 09/04/17 11:58 Primary care physician: Corinna Bernstein, Consults: 09/05/17 01:18 Consult to [employer] [facility] [CONS] Routine Comment: Vaginal delivery, consult needed Discharging clinician: Mainor Kimbrough Anticipated date of discharge: 09/06/17 - Patient Status Disposition: Home, Self-Care Condition: Good Functional capacity at discharge: independent ambulation Overall status at discharge: patient is progressing back to baseline - Discharge Instructions Follow Up With: Corinna Bernstein, AMISH [Primary Care Provider] - Mainor Kimbrough DO [Partnered Physician] - - Diet and Activity Activity: increase activity as tolerated Diet: advance to your usual diet Hospital Course Procedures: Status post normal spontaneous vaginal delivery, bilateral partial salpingectomy Reason for admission: induction of labor, other (Gestational hypertension) Delivery: Episiotomy: none Laceration: 1st degree Other procedures: tubal ligation complications: none Discharge diagnosis: IUP at term delivered Hospital course: Patient is a 37-year-old who was sent in for an induction of labor secondary to gestational hypertension. Patient had markedly elevated blood pressures over the last couple visits and was symptomatic in the office blood pressure is 160/ 110 she was sent to the hospital for induction patient's PIH labs were all within normal limits. Patient delivered vaginally without any significant complications. Patient was wanting a tubal ligation patient did undergo a bilateral partial salpingectomy without complications. Patient did well patient was discharged home on hospital day #2 with prescription for Narco 5 mg 1 every 6 as needed for pain for 7 days #28 and Motrin 600 mg 1 every 6 hours as needed for cramping. She will follow-up in the office in 4 weeks patient's condition at the time of discharge was stable. Time Attestation: Total time spent providing and/or coordinating discharge services: Exam - Constitutional Vitals: Temp Pulse Resp BP Pulse Ox 97.8 F 72 16 131/84 98 09/06/17 10:15 09/06/17 10:15 09/06/17 10:15 09/06/17 10:15 09/06/17 10:15 General appearance IM: mild distress, A&O X 3 - Respiratory Respiratory exam: Present: CTAB - Cardiovascular Cardiovascular exam IM: Present: RRR - GI/Abdominal GI/Abdominal exam IM: normal bowel sounds Incision: normal, intact, dressed - Uterus Position: At Umbilicus
[2017-09-06 22:18] VITALS: BP 127/79
== END 2017-09-06 22:17 | disposition home or self-care (01) | DRG 767 ==
LOC: 1NENULAB → OBSVTOIN 11:58 → 1NENUOBS 09-05 01:17
PROVIDERS: ADMIT Obstetrics & Gynecology; ATTEND Obstetrics & Gynecology